=== PATIENT | female | born 1965 | race Hispanic/Latino ===

== ENCOUNTER 2018-04-07 06:45 | Emergency (ER) | payer SELFPAY ==
[~2018-04-07] VITALS: Ht 160 cm; Wt 88.0 kg
--- OUTSIDE RECORDS SUMMARY | 2018-04-07 06:49 | XMS REPORT ---
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 Allergies, Adverse Reactions, Alerts This patient has no known allergies or adverse reactions. Medications This patient has no known medications. Encounters Start Date/Time End Date/Time Encounter Type Admission Type Attending [facility] [place] Facility Care Department Encounter ID 2018-03-10 15:24:15 2018-03-10 15:24:15 Outpatient [facility] [id number] 2018-03-10 14:31:36 2018-03-10 14:31:36 Outpatient [facility] [id number] 2018-02-01 12:45:09 2018-02-01 12:45:09 Outpatient [facility] [id number] 2018-01-17 00:00:00 2018-01-17 00:00:00 Outpatient [facility] [id number] 2018-01-13 14:32:26 2018-01-13 14:32:26 Outpatient [facility] [id number] 2017-12-27 00:00:00 2017-12-27 00:00:00 Outpatient [facility] [id number] 2017-12-13 00:00:00 2017-12-13 00:00:00 Outpatient [facility] [id number] 2017-12-13 00:00:00 2017-12-13 00:00:00 Outpatient [facility] [id number] 2017-12-09 00:00:00 2017-12-09 00:00:00 Outpatient [facility] [id number] 2017-11-24 11:10:02 2017-11-24 11:10:02 Outpatient [facility] [id number] 2017-10-28 00:00:00 2017-10-28 00:00:00 Outpatient [facility] [id number] 2017-10-26 12:47:31 2017-10-26 12:47:31 Outpatient [facility] [id number] 2017-10-17 00:00:00 2017-10-17 00:00:00 Outpatient [facility] [id number] 2017-10-13 12:34:19 2017-10-13 12:34:19 Outpatient [facility] [id number] 2017-10-10 12:19:03 2017-10-10 12:19:03 Outpatient [facility] [id number] 2017-10-05 10:08:01 2017-10-05 10:08:01 Outpatient [facility] [id number] 2017-10-05 08:21:01 2017-10-05 08:21:01 Outpatient [facility] [id number] 2017-10-05 00:00:00 2017-10-05 00:00:00 Outpatient [facility] [id number] 2017-08-30 01:06:26 2017-08-30 01:06:26 Emergency [facility] [id number]
--- OUTSIDE RECORDS SUMMARY | 2018-04-07 06:49 | XMS REPORT | Clinical Summary ---
Author Author [facility] Organization [facility] Address Unknown Phone Unavailable Care Team Providers Care Director Of Patient Safety Name Role Phone Hebert Cadena MD PCP Allergies No Known Allergies Medications End Date Status Medication Sig Dispensed Refills Start Date Active losartan (COZAAR) 25 mg Take 1 tablet 90 tablet 0 tabletIndications: by mouth 8 Essential hypertension, daily. SOB (shortness of breath) Active hydroCHLOROthiazide Take 1 90 capsule 1 (MICROZIDE) 12.5 mg capsule by 8 capsuleIndications: mouth every Essential hypertension, morning. SOB (shortness of breath) Active albuterol 90 Inhale 2 20.1 g 0 mcg/actuation Puffs by 8 inhalerIndications: SOB mouth 4 times (shortness of breath) daily as needed for Shortness of Breath. 01/13/2018 Discontinued losartan (COZAAR) 25 mg TAKE ONE (1) 2 tablet TABLET(S) BY 8 MOUTH TWICE A DAY. 01/13/2018 Discontinued TRIAMTERENE-HCTZ 37.5-25 TAKE ONE (1) 2 mg per tablet TO TWO (2) 8 TABLET(S) BY MOUTH ONCE A DAY. 01/23/2018 hydrOXYzine (ATARAX) 25 Take 1 tablet 60 tablet 0 mg tabletIndications: by mouth 3 8 Anxious mood times daily as needed for up to 10 days for Itching or Anxiety. Active Problems Problem Noted Date Elevated TSH Subclinical hypothyroidism Encounters Care Team Description Date Type Specialty Hebert Cadena MD Low blood potassium; Dyslipidemia; Essential hypertension: not at goal, counselled on med compliance 03/10/2018 Lab Appointment Lab Heebrt Cadena MD Low blood potassium (Primary Dx); Dyslipidemia; Essential hypertension: not at goal, counselled on med compliance 03/10/2018 Office Visit [facility] 03/10/2018 Travel Hebert Cadena MD Essential hypertension: at goal, continue meds (Primary Dx); SOB (shortness of breath); Anxious mood; Vaccine refused by parent 01/13/2018 Office Visit [facility] Ary Hicks Colon Cancer Screening (Education on FIT completion ) 12/27/2017 Telephone Gastroenterology IsmaValeri gillespie MD Kaplan, [place], ResidentMD Oropharyngeal dysphagia (Primary Dx); Anxiety 11/24/2017 Office Visit Internal Medicine Kuldeep Wlels ResidentMD Anxiety 11/24/2017 Orders Only Internal Medicine Neck swelling 10/26/2017 Ancillary Radiology Procedure Hebert Cadena MD 10/13/2017 Hospital Radiology Encounter Vitaly Torres MD Abnormal mammogram (Primary Dx) 10/11/2017 Orders Only [facility] Hebert Cadena MD Fatigue, unspecified type; Neck swelling; Essential hypertension; Preventative health care 10/10/2017 Hospital Radiology Encounter Hebert Cadena MD Fatigue, unspecified type; Neck swelling; Essential hypertension; Preventative health care; Positive occult stool blood test 10/05/2017 Lab Appointment Lab Anshu Nguyen MD Onyenekwe, Chinedu T, MD Preventative health care (Primary Dx); Fatigue, unspecified type; Neck swelling; Essential hypertension; Positive occult stool blood test; BMI over 35 10/05/2017 Office Visit [facility] Samm Gipson MD Elevated TSH (Primary Dx); Subclinical hypothyroidism 08/30/2017 Emergency Emergency Medicine after 04/06/2017 Immunizations Name Dates Previously Given Next Due Influenza, 01/13/2018 (Deferred: Patient Refused) Vaccine<FLUCELVAX>(Multi- Dose) TDap (Tetanus Toxoid, 01/13/2018 (Deferred: Patient Refused) Reduced Diphtheria Toxoid And Acellular Pertussis, Absorbed) Family History Medical History Relation Name Comments Stroke Brother Heart Father Hypertension Father Stroke Father Cancer Mother breast cancer Relation Name Status Comments Brother Alive Brother Alive Brother Alive Daughter Alive Daughter Alive Father Maternal Grandfather Maternal Grandmother Mother Alive Paternal Grandfather Paternal Grandmother Sister Alive Sister Alive Son Alive Social History Date Tobacco Use Types Packs/Day Years Used Never Smoker Smokeless Tobacco: Never Used Alcohol Use Drinks/Week oz/Week Comments No Social Isolation Answer Date Recorded In a typical week, how many times do you talk on More than three times a week 03/10/2018 the phone with family, friends, or neighbors? How often do you get together with friends or Once a week 03/10/2018 relatives? How often do you attend oriental orthodox or latter-day More than 4 times per year 03/10/2018 services? Do you belong to any clubs or organizations such No 03/10/2018 as oriental orthodox groups, unions, fraternal or athletic groups, or school groups? How often do you attend meetings of the clubs or Never 03/10/2018 organizations you belong to? Are you now , , , , 03/10/2018 never or living with a partner? Physical Activity Answer Date Recorded On average, how many days per week do you engage 0 days 03/10/2018 in moderate to strenuous exercise (like walking fast, running, jogging, dancing, swimming, biking, or other activities that cause a light or heavy sweat)? On average, how many minutes do you engage in 0 min 03/10/2018 exercise at this level? Stress Answer Date Recorded Do you feel stress - tense, restless, nervous, or Very much 03/10/2018 anxious, or unable to sleep at night because your mind is troubled all the time - these days? Education Answer Date Recorded What is the highest level of school you have Some college, no degree 03/10/2018 completed or the highest degree you have received? Financial Resource Strain Answer Date Recorded How hard is it for you to pay for the very basics Not hard at all 03/10/2018 like food, housing, medical care, and heating? Intimate Partner Violence Answer Date Recorded Within the last year, have you been afraid of your No 03/10/2018 partner or ex-partner? Within the last year, have you been humiliated or No 03/10/2018 emotionally abused in other ways by your partner or ex-partner? Within the last year, have you been kicked, hit, No 03/10/2018 slapped, or otherwise physically hurt by your partner or ex-partner? Within the last year, have you been raped or No 03/10/2018 forced to have any kind of sexual activity by your partner or ex-partner? Food Insecurity Answer Date Recorded Within the past 12 months, you worried that your Never true 03/10/2018 food would run out before you got money to buy more. Within the past 12 months, the food you bought Never true 03/10/2018 just didn't last and you didn't have money to get more. Transportation Needs Answer Date Recorded In the past 12 months, has lack of transportation No 03/10/2018 kept you from medical appointments or from getting medications? In the past 12 months, has lack of transportation No 03/10/2018 kept you from meetings, work, or getting things needed for daily living? Sex Assigned at Date Recorded Not on file Industry Job Start Date Occupation Not on file Not on file Not on file Travel End Travel History Travel Start No recent travel history available. Last Filed Vital Signs Time Taken Vital Sign Reading 03/10/2018 2:33 PM [facility] Blood Pressure 140/94 03/10/2018 2:33 PM [facility] Pulse 87 03/10/2018 2:33 PM [facility] Temperature 36.6 C (97.8 F) 03/10/2018 2:33 PM [facility] Respiratory Rate 18 01/13/2018 2:32 PM CDT Oxygen Saturation 97% - Inhaled Oxygen - Concentration 03/10/2018 2:33 PM [facility] Weight 90.8 kg (200 lb 3.2 oz) 03/10/2018 2:33 PM [facility] Height 160 cm (5' 3") 03/10/2018 2:33 PM [facility] Body Mass Index 35.46 Plan of Treatment Health Maintenance Due Date Last Done Comments IMM Influenza Seasonal 12/26/2017 Oct to May (>/=19 yrs) Breast Cancer Scrn 10/10/2018 10/10/2017 (Yearly) Colorectal Cancer Scrn 02/01/2019 02/01/2018 Annual (FIT/FOBT) Age 50 to 75 Procedures Comments Procedure Name Priority Date/Time Associated Diagnosis TSH Routine 03/10/2018 Low blood potassium 3:21 PM [facility] Dyslipidemia Essential hypertension: not at goal, counselled on med compliance BASIC METABOLIC PANEL Routine 03/10/2018 Low blood potassium 3:21 PM [facility] OCCULT BLOOD ICT Routine 02/01/2018 11:38 AM [facility] NONINVASV OXYGEN Routine 01/13/2018 SOB (shortness of breath) SATUR;SINGLE 3:08 PM CDT U/S THYROID/NECK Routine 10/26/2017 Neck swelling 2:06 PM CDT MAMMO BREAST ULTRASOUND Routine 10/13/2017 Breast lump UNILATERAL, LTD 1:38 PM CDT MAMMOGRAM BILAT DIAG Routine 10/10/2017 Fatigue, unspecified type DIGITAL 1:35 PM CDT Neck swelling Essential hypertension Preventative health care MICROALBUM, URINE Routine 10/05/2017 Fatigue, unspecified type 10:04 AM CDT Neck swelling Essential hypertension Preventative health care LIPID PROFILE Routine 10/05/2017 Fatigue, unspecified type 10:04 AM CDT Neck swelling Essential hypertension Preventative health care HEMOGLOBIN A1C Routine 10/05/2017 Fatigue, unspecified type 10:04 AM CDT Neck swelling Essential hypertension Preventative health care BMP POC Routine 08/30/2017 4:56 AM CDT FREE T4 STAT 08/30/2017 4:45 AM CDT TSH STAT 08/30/2017 4:45 AM CDT CBC/DIFF STAT 08/30/2017 4:45 AM CDT after 04/06/2017 Results * TSH (03/10/2018 3:21 PM [facility]) Only the most recent of 2 results within the time period is included. TSH 2.36 0.57 - 3.74 uIU/mL BT MAIN-STATION 1 Specimen Blood Performing Organization Address City/State/Zipcode Phone Number MISYS BT MAIN-STATION 1 * BASIC METABOLIC PANEL (03/10/2018 3:21 PM [facility]) CO2 32 (H) 21 - 31 mmol/L BT MAIN-STATION 1 Chloride 105 98 - 107 mmol/L BT MAIN-STATION 1 Potassium 3.9 3.5 - 5.1 mmol/L BT MAIN-STATION 1 Sodium 144 136 - 145 mmol/L BT MAIN-STATION 1 Glucose 101 70 - 110 mg/dL BT MAIN-STATION 1 Urea Nitrogen 12 7 - 25 mg/dL BT MAIN-STATION 1 Creatinine 0.80 0.6 - 1.2 mg/dL BT MAIN-STATION 1 Anion Gap 7 BT MAIN-STATION 1 Calcium 9.1 8.6 - 10.3 mg/dL BT MAIN-STATION 1 GFR, Estimated >60 mL/min/1.73 m2 BT MAIN-STATION 1 GFR, Estim, >60 mL/min/1.73 m2 BT MAIN-STATION Afr-Am 1 Specimen Blood Performing Organization Address City[facility] Phone Number M[facility]YS BT [facility]IN-STATION 1 * OCCULT BLOOD ICT (02/01/2018 11:38 AM [facility]) Occult Blood Negative [facility] ICT Performing Organization Address City/[facility] Number [facility] * U/S THYROID/NECK (10/26/2017 2:06 PM CDT) Impressions Performed At IMPRESSION: SMS No thyromegaly. Subcentimeter nodule in the right lobe does not meet criteria for FNA or follow-up. TR1, Benign: No FNA TI-RADS Lexicon: TR1, Benign: No FNA TR2, Not Suspicious: No FNA. TR3a (<1.5 cm), Mildly Suspicious: No follow-up. TR3b (1.5-2.5 cm), Mildly Suspicious: Follow at 1, 3, 5 years. TR3c (>2.5 cm), Mildly Suspicious: FNA. TR4a (<1.0 cm), , Moderately Suspicious: No follow-up. TR4b (1.0-1.5 cm), Moderately Suspicious: Follow at 1, 2, 3, 5 years. TR4c (>1.5 cm), Moderately Suspicious: FNA. TR5a (<0.5 cm), Highly Suspicious: No follow-up. TR5b (0.5-1.0 cm), Highly Suspicious: Follow at 1, 2, 3, 4, 5 years. TR5c (>1.0 cm), Highly Suspicious: FNA. *Rebiopsy if new suspicious features *No recommendation at this time for significant interval growth. Nodule Characteristics: *Benign features: cystic, hyperechoic, comet-tail artifact, complete halo *Minor suspicious features: solid, hypoechoic, other calcifications *Major suspicious features: microcalcifications, marked hypoechoic (less than strap muscle), suspicious lymph nodes, taller than wide, lobulated or ill-defined margins. Literature: ACR Thyroid Imaging, Reporting and Data System (TI-RADS): White Paper of the ACR TI-RADS Committee. J Am Brayan Radiol 2017. Signed By: Tj Funez MD, 10/26/2017 2:49 PM Narrative Performed At EXAM: Thyroid Ultrasound SMS INDICATION: neck fullness, evaluate for thyromegaly COMPARISON: None TECHNIQUE: Transverse and sagittal images were obtained of the thyroid gland. FINDINGS: Thyroid gland: Size: Right lobe 3.8 x 1.6 x 1.7 cm, Normalin size Left lobe 3.8 x 1.2 x 1.6 cm, Normalin size Isthmus 0.1 cm, Normal in size Appearance: Homogeneous echotexture without increased vascularity Masses/Nodules: Right lobe: 0.6 x 0.4 x 0.4 cm spongiform (0 pts) nodule in the superior pole with smooth margin (0 pts), [id number] (0 pts), isoechoic (1 pt), and no calcifications (0 pts).TR1, Benign: No FNA Left lobe: None Parathyroid: No focal parathyroid masses. Procedure Note Interface, Rad/Mammog In - 10/26/2017 2:54 PM CDT EXAM: Thyroid Ultrasound INDICATION: neck fullness, evaluate for thyromegaly COMPARISON: None TECHNIQUE: Transverse and sagittal images were obtained of the thyroid gland. FINDINGS: Thyroid gland: Size: Right lobe 3.8 x 1.6 x 1.7 cm, Normal in size Left lobe 3.8 x 1.2 x 1.6 cm, Normal in size Isthmus 0.1 cm, Normal in size Appearance: Homogeneous echotexture without increased vascularity Masses/Nodules: Right lobe: 0.6 x 0.4 x 0.4 cm spongiform (0 pts) nodule in the superior pole with smooth margin (0 pts), [id number] (0 pts), isoechoic (1 pt), and no calcifications (0 pts). TR1, Benign: No FNA Left lobe: None Parathyroid: No focal parathyroid masses. IMPRESSION IMPRESSION: No thyromegaly. Subcentimeter nodule in the right lobe does not meet criteria for FNA or follow-up. TR1, Benign: No FNA TI-RADS Lexicon: TR1, Benign: No FNA TR2, Not Suspicious: No FNA. TR3a (<1.5 cm), Mildly Suspicious: No follow-up. TR3b (1.5-2.5 cm), Mildly Suspicious: Follow at 1, 3, 5 years. TR3c (>2.5 cm), Mildly Suspicious: FNA. TR4a (<1.0 cm), , Moderately Suspicious: No follow-up. TR4b (1.0-1.5 cm), Moderately Suspicious: Follow at 1, 2, 3, 5 years. TR4c (>1.5 cm), Moderately Suspicious: FNA. TR5a (<0.5 cm), Highly Suspicious: No follow-up. TR5b (0.5-1.0 cm), Highly Suspicious: Follow at 1, 2, 3, 4, 5 years. TR5c (>1.0 cm), Highly Suspicious: FNA. *Rebiopsy if new suspicious features *No recommendation at this time for significant interval growth. Nodule Characteristics: * Benign features: cystic, hyperechoic, comet-tail artifact, complete halo * Minor suspicious features: solid, hypoechoic, other calcifications * Major suspicious features: microcalcifications, marked hypoechoic (less than strap muscle), suspicious lymph nodes, taller than wide, lobulated or ill-defined margins. Literature: ACR Thyroid Imaging, Reporting and Data System (TI-RADS): White Paper of the ACR TI-RADS Committee. J Am Brayan Radiol 2017. Signed By: Tj Funez MD, 10/26/2017 2:49 PM Performing Organization Address City/State/Zipcode Phone Number SMS * [facility] BREAST ULTRASOUND UNILATERAL, LTD (10/13/2017 1:38 PM CDT) Impressions Performed At IMPRESSION: NEGATIVE SMS There is no sonographic evidence of malignancy. Return to annual mammogram screening schedule is recommended. This document has been electronically signed. Lisbet Bosch M.D. apb/:10/13/2017 13:36:53 Director Epidemiology: Evonne Guevara [facility] letter sent: Mammography Normal Ultrasound BI-RADS: 1 Negative 19843X51.0 Narrative Performed At #[id number] - MAMMO BREAST ULTRASOUND UNILATERAL, LTD [facility] ULTRASOUND OF LEFT BREAST: 10/13/2017 CLINICAL: Palpable Complaint In The Left Breast Per Mammogram 10/10/2017 Report. Comparison is made to exam dated:10/10/2017 [facility]. Color flow and real-time ultrasound of the left breast were performed on the areas of interest.Pulido scale images of the real-time examination were reviewed. No suspicious masses or other sonographic abnormalities are seen in the area of palpable complaint / pain as indicated by the patient in the left breast at 1-3 o'clock, 5 cm from the nipple. Procedure Note Interface, Rad/Mammog In - 10/13/2017 2:49 PM CDT #[id number] - MAMMO BREAST ULTRASOUND UNILATERAL, LTD ULTRASOUND OF LEFT BREAST: 10/13/2017 CLINICAL: Palpable Complaint In The Left Breast Per Mammogram 10/10/2017 Report. Comparison is made to exam dated: 10/10/2017 [facility]. Color flow and real-time ultrasound of the left breast were performed on the areas of interest. Pulido scale images of the real-time examination were reviewed. No suspicious masses or other sonographic abnormalities are seen in the area of palpable complaint / pain as indicated by the patient in the left breast at 1-3 o'clock, 5 cm from the nipple. IMPRESSION IMPRESSION: NEGATIVE There is no sonographic evidence of malignancy. Return to annual mammogram screening schedule is recommended. This document has been electronically signed. Lisbet Bosch M.D. apb/:10/13/2017 13:36:53 Director Epidemiology: Evonne Guevara [facility] letter sent: Mammography Normal Ultrasound BI-RADS: 1 Negative 79597 N63.0 Performing Organization Address City/State/Zipcode Phone Number SMS * MAMMOGRAM BILAT DIAG DIGITAL (10/10/2017 1:35 PM CDT) Impressions Performed At IMPRESSION: INCOMPLETE: NEEDS ADDITIONAL IMAGING EVALUATION SMS Given the palpable complaint in the left breast, sonography is recommended. Please place a Referral to [facility] code [id number]. This document has been electronically signed. Estee Cha M.D. anh/:10/10/2017 14:17:29 Director Epidemiology: Bree Hoang [facility] letter sent: Additional Imaging Needed Mammogram BI-RADS: 0 Indeterminate G0204 N63.0 N64.59 Narrative Performed At #[id number] - MAMMOGRAM BILAT DIAG DIGITAL SMS BILATERAL DIGITAL DIAGNOSTIC MAMMOGRAM 3D/2D WITH CAD: 10/10/2017 CLINICAL: 52 y/o female, family hx of breast cancer (mother 69). Breast Cancer Screening / Left Breast Lump And Burning. No prior exams were available for comparison. There are scattered fibroglandular elements in both breasts that could obscure a lesion on mammography. Tomosynthesis was used.Current study was also evaluated with a Computer Aided Detection (CAD) system. There are benign calcifications in both breasts. No other significant masses, calcifications, or other findings are seen in either breast. Procedure Note Interface, Rad/Mammog In - 10/10/2017 3:08 PM CDT #[id number] - MAMMOGRAM BILAT DIAG DIGITAL BILATERAL DIGITAL DIAGNOSTIC MAMMOGRAM 3D/2D WITH CAD: 10/10/2017 CLINICAL: 52 y/o female, family hx of breast cancer (mother 69). Breast Cancer Screening / Left Breast Lump And Burning. No prior exams were available for comparison. There are scattered fibroglandular elements in both breasts that could obscure a lesion on mammography. Tomosynthesis was used. Current study was also evaluated with a Computer Aided Detection (CAD) system. There are benign calcifications in both breasts. No other significant masses, calcifications, or other findings are seen in either breast. IMPRESSION IMPRESSION: INCOMPLETE: NEEDS ADDITIONAL IMAGING EVALUATION Given the palpable complaint in the left breast, sonography is recommended. Please place a Referral to [facility] code [id number]. This document has been electronically signed. Estee Cha M.D. anh/:10/10/2017 14:17:29 Director Epidemiology: Bree Hoang [facility] letter sent: Additional Imaging Needed Mammogram BI-RADS: 0 Indeterminate G0204 N63.0 N64.59 Performing Organization Address City/State/Zipcode Phone Number SMS * MICROALBUM, URINE (10/05/2017 10:04 AM CDT) Microalbum, 1.0 0.0 - 29.0 mg/dL BT MAIN-STATION Random 1 Creatinine, Ur 124.0 20 - 320 mg/dL BT MAIN-STATION 1 Urine 8.1 0 - 29 mg/g UCR BT MAIN-STATION Microalbumin Comment: 1 To minimize intra-individual variation, analysis of three random urine samples collected over the course of a week is recommended. Performing Organization Address [facility] Phone Number MISYS BT MAIN-STATION 1 * HEMOGLOBIN A1C (10/05/2017 10:04 AM CDT) Hemoglobin A1c 6.0 4.3 - 6.1 % BT DIAGNOSTIC IMMUNOLOGY Est Average 125.5 mg/dL BT DIAGNOSTIC Gluc IMMUNOLOGY Specimen Blood Performing Organization Address [facility] Phone Number MISYS BT DIAGNOSTIC IMMUNOLOGY * LIPID PROFILE (10/05/2017 10:04 AM CDT) Cholesterol 215 mg/dL BT MAIN-STATION Comment: 1 REFERENCE RANGE: Desirable: <200 mg/dL Borderline: 200-240 mg/dL High Risk: >240 mg/dL Triglyceride 224 (H) <150 mg/dL BT MAIN-STATION Comment: 1 REFERENCE RANGE: Normal: <150 mg/dL Borderline High: 150-199 mg/dL High: 200-499 mg/dL Very High: >fk=392 mg/dL HDL 44 mg/dL BT MAIN-STATION Comment: 1 Increased CHD risk: <40 mg/dL Decreased CHD risk: >60 mg/dL LDL 126 mg/dL BT MAIN-STATION Comment: 1 REFERENCE RANGE: Optimal: <100 mg/dL Near Optimal: 100-129 mg/dL Borderline High: 130-159 mg/dL High: 160-189 mg/dL Very High: >gd=149 mg/dL Specimen Blood Performing Organization Address [facility] Phone Number MISYS BT MAIN-STATION 1 * BMP POC (08/30/2017 4:56 AM CDT) CO2 POC 27 21 - 32 mmol/L BT MAIN-STATION 1 Chloride POC 101 98 - 107 mmol/L BT MAIN-STATION 1 Potassium POC 3.4 (L) 3.50 - 5.10 mmol/L BT MAIN-STATION 1 Sodium POC 139 136 - 145 mmol/L BT MAIN-STATION 1 Glucose POC 97 74 - 106 mg/dL BT MAIN-STATION 1 Urea Nitrogen 8 7 - 18 mg/dL BT MAIN-STATION POC 1 Creatinine POC 0.7 0.6 - 1.3 mg/dL BT MAIN-STATION 1 Calcium Ionized 1.09 (L) 1.15 - 1.29 mmol/L BT MAIN-STATION POC 1 Hemoglobin POC 16.0 12.0 - 16.0 g/dL BT MAIN-STATION 1 Hematocrit POC 47.0 37.0 - 47.0 % BT MAIN-STATION 1 GFR, Estimated >60 mL/min/1.73 m2 BT MAIN-STATION 1 GFR, Estim, >60 mL/min/1.73 m2 BT MAIN-STATION Afr-Am 1 Performing Organization Address [facility] Phone Number [facility] BT [facility]IN-STATION 1 * FREE T4 (08/30/2017 4:45 AM CDT) Free T4 0.79 0.61 - 1.18 ng/dl BT MAIN-STATION Comment: 1 females: 1st Trimester-0.52-1.10 ng/dL 2nd Trimester=0.45-0.99 ng/dL 3rd Trimester=0.48-0.95 ng/dL Specimen Blood Performing Organization Address [facility]/Zipcode Phone Number MISYS BT MAIN-STATION 1 * CBC/DIFF (08/30/2017 4:45 AM CDT) WBC 8.9 4.5 - 11.0 K/uL BT MAIN-STATION 2 RBC 4.95 4.20 - 5.40 M/uL BT MAIN-STATION 2 Hemoglobin 14.6 12.0 - 16.0 g/dL BT MAIN-STATION 2 Hematocrit 44.8 37.0 - 47.0 % BT MAIN-STATION 2 MCV 91 82 - 92 fL BT MAIN-STATION 2 MCH 29.5 27.0 - 32.0 pg BT MAIN-STATION 2 MCHC 32.6 32.0 - 36.0 g/dL BT MAIN-STATION 2 RDW 47.2 (H) 36.4 - 46.3 fL BT MAIN-STATION 2 Platelet 283 150 - 400 K/uL BT MAIN-STATION 2 Mean Platelet 11.1 9.4 - 12.4 fL BT MAIN-STATION Volume 2 Percent NRBC 0.0 BT MAIN-STATION 2 Absolute NRBC 0.00 BT MAIN-STATION 2 Neutrophil 54.9 34.0 - 70.0 % BT MAIN-STATION 2 Lymphocyte 31.9 20.0 - 50.0 % BT MAIN-STATION 2 Monocyte 5.7 5.0 - 12.0 % BT MAIN-STATION 2 Eosinophil 6.6 (H) 0.7 - 5.0 % BT MAIN-STATION 2 Basophil 0.6 0.1 - 1.2 % BT MAIN-STATION 2 Pct Immat Gran 0.3 0.0 - 0.5 BT MAIN-STATION 2 Neutrophil, Abs 4.89 1.56 - 6.13 K/uL BT MAIN-STATION 2 Lymphocyte, Abs 2.84 1.18 - 3.74 K/uL BT MAIN-STATION 2 Monocyte, Abs 0.51 (H) 0.24 - 0.36 K/uL BT MAIN-STATION 2 Eosinophil, Abs 0.59 (H) 0.04 - 0.36 K/uL BT MAIN-STATION 2 Basophil, Abs 0.05 0.01 - 0.08 K/uL BT MAIN-STATION 2 Absol Immat 0.03 0.00 - 0.03 K/uL BT MAIN-STATION Gran 2 Specimen Blood Performing Organization Address City/State/Zipcode Phone Number MISYS BT MAIN-STATION 2 after 04/06/2017 Insurance Type Payer Benefit Subscriber ID Effective Phone Address Plan / Dates Group [facility] xxxxxxxxx 2017- [phone] [address] [employer] FAMILY 2018 [id number] [place], [place] [id number] [employer] PLAN [employer] PLAN xxxxxxx 2017-5 [address] [place] [address]
[2018-04-07] MEDS ORDERED: ASPIRIN 81 MG CHEW TAB PO ONE (08:00)
[2018-04-07 08:29] LABS: BASOPHILS # (AUTO) 0.1 (0.0-0.1); EOSINOPHILS # (AUTO) 0.2 (0.0-0.4); EOSINOPHILS % 3.1 % (0.0-6.0); HEMOGLOBIN 14.9 g/dL (12.0-16.0); LYMPHOCYTES # (AUTO) 1.8 (1.0-3.2); MEAN CORPUSCULAR HEMOGLOBIN 28.4 pg (28-32); MEAN CORPUSCULAR HGB CONC 32.4 g/dL (31-35); MEAN CORPUSCULAR VOLUME 87.6 fL (81-99); MONOCYTES # (AUTO) 0.3 (0.2-0.8); MONOCYTES % 4.8 % (4.4-11.3); NEUTROPHILS # (AUTO) 3.5 (2.1-6.9); NEUTROPHILS % 59.8 % (38.7-80.0); PLATELET COUNT 267 x10e3/uL (140-360); RED BLOOD COUNT 5.25 x10e6/uL (3.6-5.1); RED CELL DISTRIBUTION WIDTH 14.3 % (11.7-14.4)
--- NOTE | 2018-04-07 08:44 | Diagnostic Imaging Report ---
CT BRAIN WO HISTORY: Dizziness COMPARISON: None. TECHNIQUE: Noncontrast axial scans were obtained from skull base to the vertex. Coronal and sagittal reconstructions obtained from the axial data. One or more of the following dose reduction techniques were used: Automated exposure control, adjustment of the mA and/or kV according to patient size, and/or utilization of iterative reconstruction technique. DISCUSSION: Scalp/Skull: Unremarkable. Brain sulci: Appropriate for patient's age. Ventricles: Mild prominence of the right lateral ventricle is within normal limits. Otherwise, unremarkable. Extra-axial spaces: No masses or fluid collections. Mild carotid siphon calcifications are present. Parenchyma: Mild periventricular white matter hypodensities are likely chronic microvascular ischemic changes. Otherwise, no masses, hemorrhage, or large vascular territory acute infarct. Dural sinuses: No abnormal densities. Sellar/Suprasellar region: Empty sella is nonspecific. Skull base: Intact. Incidental findings: None. IMPRESSION: 1. No acute intracranial abnormalities. 2. Mild supratentorial chronic microvascular ischemic change. 3. Nonspecific empty sella. Signed by: Dr. Rikki Arias M.D. on 04/07/2018 8:41 AM
[2018-04-07 08:47] LABS: CLARITY,URINE SL CLOUDY (CLEAR); COLOR,URINE YELLOW (YELLOW); KETONES,URINE NEGATIVE (NEGATIVE); LEUKOCYTE ESTERASE ,URINE NEGATIVE (NEGATIVE); NITRITE,URINE NEGATIVE (NEGATIVE); PROTEIN,URINE DIPSTICK NEGATIVE (NEGATIVE)
[2018-04-07 08:48] LABS: BILIRUBIN,URINE NEGATIVE (NEGATIVE); URINE UROBILINOGEN 0.2 mg/dL (0.2 - 1)
[2018-04-07 09:01] LABS: RBC,URINE 0-5 /HPF (0-5)
[2018-04-07 09:02] LABS: EPITHELIAL CELLS,URINE RARE /LPF
[2018-04-07 09:31] LABS: CREATINE KINASE 158 IU/L (29-168)
[2018-04-07 09:32] LABS: AMYLASE 45 U/L (25-125); LIPASE 9 U/L (8-78)
[2018-04-07 10:18] LABS: ANION GAP 16.5 mmol/L (8-16); BLOOD UREA NITROGEN 13 mg/dL (7-26); BUN/CREATININE RATIO 17 (6-25); CALCIUM 9.7 mg/dL (8.4-10.2); CARBON DIOXIDE 25 mmol/L (22-29); CHLORIDE 102 mmol/L (98-107); CREATININE, SERUM 0.77 mg/dL (0.57-1.11); EST GLOMERULAR FILTRATION RATE > 60 ML/MIN (60-); GLUCOSE 92 mg/dL (74-118); POTASSIUM 4.5 mmol/L (3.5-5.1); SODIUM 139 mmol/L (136-145)
[2018-04-07 10:19] LABS: ALANINE AMINOTRANSFERASE 41 IU/L (0-55); ALBUMIN 4.3 g/dL (3.5-5.0); ALKALINE PHOSPHATASE 104 IU/L (40-150)
== END 2018-04-07 11:30 | disposition home or self-care (01) ==
LOC: ER 06:45
DX: R42 Dizziness and giddiness (principal); H81.13 Benign paroxysmal vertigo, bilateral; I10 Essential (primary) hypertension
CPT/HCPCS: 36415; 70450; 80053; 81001; 82150; 82550; 82553; 83690; 84484; 85025; 93005; 99284